=== PATIENT | female | born 1965 | race Two or more races ===

== ENCOUNTER 2016-06-14 14:17 | Emergency (ER) | payer MEDICAID ==
[~2016-06-14] VITALS: Ht 154.9 cm; Wt 77.1 kg
[~2016-06-14 14:17] MED LIST: GABA-494; GLIP-115 PO; IBUP800T24; METF-312 PO; SIMV-8
[2016-06-14 15:23] LABS: Basophils # (auto) 0 uL; Basophils % (auto) 0.4 % (0.0-2.0); Eosinophils # (auto) 0.1 uL; Eosinophils % (auto) 1.2 % (0.0-7.0); Hematocrit 39.7 % (36.0-46.0); Lymphocytes # (auto) 2.8 uL; Lymphocytes % (auto) 32.7 % (10.0-50.0); Mean Corpuscular Hemoglobin 28.7 pg (28.0-32.0); Mean Corpuscular Hgb Conc. 32.8 g/dL (32.0-36.0); Mean Corpuscular Volume 87.6 fL (80.0-100.0); Mean Platelet Volume 9.1 fL (7.4-10.4); Monocytes # (auto) 0.5 uL; Monocytes % (auto) 6.4 % (0.0-12.0); Neutrophils % (auto) 59.3 % (37.0-80.0); Platelet Count (auto) 259 10^3/uL (140-450); Red Cell Distribution Width 12.4 % (11.6-16.0); White Blood Cell 8.4 10^3/uL (4.4-10.8)
[2016-06-14 15:34] LABS: Albumin 3.1 g/dL (3.4-5.0); BUN/Creatinine Ratio 14.9; Calcium 8.6 mg/dL (8.5-10.1); Magnesium 1.3 mg/dL (1.6-2.6); Potassium 3.2 mmol/L (3.5-5.1)
[2016-06-14 15:36] LABS: Bilirubin, Total 0.4 mg/dL (0.2-1.0)
[2016-06-14 17:00] VITALS: BP 124/77
== END 2016-06-14 17:10 | disposition home or self-care (01) ==
LOC: EDUNIT# 14:17 → ER 14:21
DX: R07.89 Other chest pain (principal); E11.9 Type 2 diabetes mellitus without complications; E78.5 Hyperlipidemia, unspecified; I10 Essential (primary) hypertension; Z86.73 Personal history of transient ischemic attack (TIA), and cerebral infarction without residual deficits; Z87.442 Personal history of urinary calculi
CPT/HCPCS: 36415; 71010; 80053; 83735; 84443; 84484; 85025; 93005

== ENCOUNTER 2018-01-03 07:48 | Emergency (ER) | payer SELFPAY ==
[~2018-01-03] VITALS: Ht 154.9 cm; Wt 74.8 kg
[~2018-01-03 07:48] MED LIST changes: -GABA-494; +GABA100C9; -METF-312 PO; +METF-370 PO
[2018-01-03 07:58] VITALS: BP 148/85
== END 2018-01-03 08:57 | disposition home or self-care (01) ==
LOC: ER 07:48
DX: L03.211 Cellulitis of face (principal); E11.9 Type 2 diabetes mellitus without complications; E78.5 Hyperlipidemia, unspecified; I10 Essential (primary) hypertension; Z86.73 Personal history of transient ischemic attack (TIA), and cerebral infarction without residual deficits

== ENCOUNTER 2018-01-06 00:07 | Emergency (ER) | payer SELFPAY ==
[~2018-01-06] VITALS: Ht 152.4 cm; Wt 74.8 kg
[2018-01-06 01:13] LABS: Basophils # (auto) 0.1 uL; Basophils % (auto) 0.8 % (0.0-2.0); Eosinophils # (auto) 0.1 uL; Eosinophils % (auto) 0.8 % (0.0-7.0); Hematocrit 39.9 % (36.0-46.0); Hemoglobin 13.6 g/dL (12.2-16.2); Lymphocytes # (auto) 3.3 uL; Lymphocytes % (auto) 32.5 % (10.0-50.0); Mean Corpuscular Hemoglobin 30.5 pg (28.0-32.0); Mean Corpuscular Volume 89.7 fL (80.0-100.0); Monocytes # (auto) 0.7 uL; Monocytes % (auto) 7.2 % (0.0-12.0); Neutrophils # (auto) 5.9 uL; Neutrophils % (auto) 58.7 % (37.0-80.0); Platelet Count (auto) 299 10^3/uL (140-450); Red Blood Cells 4.44 10^6/uL (4.0-5.20); Red Cell Distribution Width 12.8 % (11.8-14.3); White Blood Cell 10.1 10^3/uL (4.4-10.8)
[2018-01-06 01:33] LABS: INR 0.93 (0.9-1.15); Partial Thromboplastin Time 28.9 sec (23.78-33.04)
[2018-01-06 01:37] LABS: Albumin 3.4 g/dL (3.4-5.0); Anion Gap 9 (5-15); BUN/Creatinine Ratio 15.4; Blood Urea Nitrogen 14 mg/dL (7-18); Calcium 8.6 mg/dL (8.5-10.1); Carbon Dioxide 25 mmol/L (21-32); Chloride 100 mmol/L (98-107); GFR African American 83 mL/min; GFR Non-African American 69 mL/min; Glucose 395 mg/dL (74-106); Magnesium 1.6 mg/dL (1.6-2.6); Potassium 3.7 mmol/L (3.5-5.1); Sodium 134 mmol/L (136-145)
[2018-01-06 01:49] LABS: Alanine Aminotransferase 22 U/L (13-56); Alkaline Phosphatase 74 U/L (45-117); Aspartate Aminotransferase 12 U/L (15-37); Bilirubin, Total 0.4 mg/dL (0.2-1.0); Total Protein 7.6 g/dL (6.4-8.2)
[2018-01-06 04:07] VITALS: BP 130/82
[2018-01-06] MEDS ORDERED: KETOROLAC TROMETH 60MG/2ML VIAL IM ONE (04:30)
[2018-01-06] MEDS ORDERED: CARISOPRODOL 350 MG TAB PO ONE (04:30)
[2018-01-06] MEDS ORDERED: INSULIN 70/30 1unit/0.01ml Susp (100units/ml) SC ONE (05:15)
== END 2018-01-06 05:32 | disposition home or self-care (01) ==
LOC: ER 00:09
DX: S16.1XXA Strain of muscle, fascia and tendon at neck level, initial encounter (principal); E11.9 Type 2 diabetes mellitus without complications; I10 Essential (primary) hypertension; E78.5 Hyperlipidemia, unspecified; Z86.73 Personal history of transient ischemic attack (TIA), and cerebral infarction without residual deficits; X58.XXXA Exposure to other specified factors, initial encounter; Y93.89 Activity, other specified; Y99.8 Other external cause status; Y92.89 Other specified places as the place of occurrence of the external cause
CPT/HCPCS: 36415; 71045; 72125; 80053; 83735; 84484; 85025; 85610; 85730; 93005; 96372; 99285; J1885

== ENCOUNTER 2018-06-07 08:28 | Emergency (ER) | payer SELFPAY ==
[~2018-06-07] VITALS: Ht 152.4 cm; Wt 74.8 kg
[2018-06-07 09:07] VITALS: BP 153/83
[2018-06-07] MEDS ORDERED: KETOROLAC TROMETH 60MG/2ML VIAL IM ONE (09:15)
== END 2018-06-07 09:39 | disposition home or self-care (01) ==
LOC: ER 08:32
DX: S39.012A Strain of muscle, fascia and tendon of lower back, initial encounter (principal); S76.012A Strain of muscle, fascia and tendon of left hip, initial encounter; R51 Headache; E11.9 Type 2 diabetes mellitus without complications; E78.5 Hyperlipidemia, unspecified; I10 Essential (primary) hypertension; Z86.73 Personal history of transient ischemic attack (TIA), and cerebral infarction without residual deficits; W01.0XXA Fall on same level from slipping, tripping and stumbling without subsequent striking against object, initial encounter; Y93.89 Activity, other specified; Y99.8 Other external cause status; Y92.89 Other specified places as the place of occurrence of the external cause
CPT/HCPCS: 70450; 72100; 73502; 96372; 99284; J1885

== ENCOUNTER 2018-07-17 20:04 | Emergency (ER) | payer SELFPAY ==
[~2018-07-17] VITALS: Ht 152.4 cm; Wt 74.8 kg
[2018-07-17 21:05] VITALS: BP 129/74
[2018-07-17 21:43] LABS: Urine Bacteria FEW /hpf (None Seen); Urine Blood Negative /uL (Negative); Urine Mucus FEW (None Seen); Urine Specific Gravity 1.025 (1.001-1.035); Urine WBC 2 /hpf (0 - 5)
[2018-07-17 21:54] LABS: Basophils # (auto) 0 uL; Basophils % (auto) 0.4 % (0.0-2.0); Eosinophils # (auto) 0.1 uL; Eosinophils % (auto) 0.9 % (0.0-7.0); Hematocrit 41.3 % (36.0-46.0); Hemoglobin 14.1 g/dL (12.2-16.2); Lymphocytes # (auto) 3.3 uL; Mean Corpuscular Hemoglobin 30.6 pg (28.0-32.0); Mean Corpuscular Hgb Conc. 34.2 g/dL (32.0-36.0); Mean Corpuscular Volume 89.6 fL (80.0-100.0); Monocytes # (auto) 0.7 uL; Monocytes % (auto) 7.4 % (0.0-12.0); Neutrophils % (auto) 59.3 % (37.0-80.0); Platelet Count (auto) 331 10^3/uL (140-450); Red Blood Cells 4.61 10^6/uL (4.0-5.20); Red Cell Distribution Width 12.8 % (11.8-14.3); White Blood Cell 10.2 10^3/uL (4.4-10.8)
[2018-07-17 22:00] LABS: INR 0.94 (0.9-1.15); Partial Thromboplastin Time 25.4 sec (23.78-33.04); Prothrombin Time 10.1 sec (9.27-12.13)
[2018-07-17 22:02] LABS: Alanine Aminotransferase 21 U/L (13-56); Albumin 3.4 g/dL (3.4-5.0); Amylase 41 U/L (25-115); Anion Gap 12 (5-15); Aspartate Aminotransferase 14 U/L (15-37); BUN/Creatinine Ratio 13.6; Blood Urea Nitrogen 9 mg/dL (7-18); Calcium 8.4 mg/dL (8.5-10.1); Carbon Dioxide 26 mmol/L (21-32); Chloride 102 mmol/L (98-107); GFR African American 120 mL/min; GFR Non-African American 100 mL/min; Glucose 255 mg/dL (74-106); Lipase 111 U/L (73-393); Magnesium 1.5 mg/dL (1.6-2.6); Potassium 3.6 mmol/L (3.5-5.1); Sodium 140 mmol/L (136-145)
[2018-07-17 22:08] LABS: Alkaline Phosphatase 70 U/L (45-117); Bilirubin, Total 0.5 mg/dL (0.2-1.0); Total Protein 7.7 g/dL (6.4-8.2)
== END 2018-07-17 23:50 | disposition home or self-care (01) ==
LOC: ER 20:06
DX: N20.0 Calculus of kidney (principal); K57.30 Diverticulosis of large intestine without perforation or abscess without bleeding; E11.9 Type 2 diabetes mellitus without complications; E78.5 Hyperlipidemia, unspecified; I10 Essential (primary) hypertension
CPT/HCPCS: 36415; 70450; 74176; 80053; 81001; 82150; 83690; 83735; 84484; 85025; 85610; 85730; 93005

== ENCOUNTER 2018-09-10 19:32 | Emergency (ER) | payer MEDICAID ==
[~2018-09-10] VITALS: Ht 152.4 cm; Wt 70.8 kg
[2018-09-10 20:50] LABS: Urine Bacteria NONE SEEN /hpf (None Seen); Urine Blood Negative /uL (Negative); Urine Mucus FEW (None Seen); Urine WBC 4 /hpf (0 - 5)
[2018-09-10 21:52] LABS: Basophils # (auto) 0 uL; Basophils % (auto) 0.5 % (0.0-2.0); Eosinophils # (auto) 0.1 uL; Eosinophils % (auto) 1.2 % (0.0-7.0); Hematocrit 43.8 % (36.0-46.0); Lymphocytes # (auto) 2.6 uL; Lymphocytes % (auto) 26.5 % (10.0-50.0); Mean Corpuscular Hemoglobin 30.4 pg (28.0-32.0); Mean Corpuscular Hgb Conc. 34.1 g/dL (32.0-36.0); Monocytes # (auto) 0.6 uL; Monocytes % (auto) 6.2 % (0.0-12.0); Neutrophils # (auto) 6.4 uL; Neutrophils % (auto) 65.6 % (37.0-80.0); Nucleated Red Blood Cells % 0.1 %; Platelet Count (auto) 361 10^3/uL (140-450); Red Blood Cells 4.92 10^6/uL (4.0-5.20); White Blood Cell 9.8 10^3/uL (4.4-10.8)
[2018-09-10 22:13] LABS: Albumin 3.8 g/dL (3.4-5.0); Calcium 9.5 mg/dL (8.5-10.1); Potassium 4.1 mmol/L (3.5-5.1)
[2018-09-10 22:19] LABS: BUN/Creatinine Ratio 18.5; Bilirubin, Total 0.5 mg/dL (0.2-1.0); Total Protein 8.3 g/dL (6.4-8.2)
[2018-09-11] MEDS ORDERED: ONDANSETRON HCL 4 MG/2 ML VIAL IV ONE (00:45)
[2018-09-11] MEDS ORDERED: HYDROmorphone HCL 2 MG/ML VL IV ONE (00:45)
[2018-09-11] MEDS ORDERED: SODIUM CHLORIDE 0.9% 1,000 ML IV ONE (03:15)
[2018-09-11] MEDS ORDERED: InsuLIN REG 1unit/0.01ml Soln (100units/ml) IV ONE ×2 (03:15→04:45)
[2018-09-11 04:35] VITALS: BP 120/79
== END 2018-09-11 06:00 | disposition home or self-care (01) ==
LOC: ER 19:36
DX: E11.65 Type 2 diabetes mellitus with hyperglycemia (principal); E78.5 Hyperlipidemia, unspecified; I10 Essential (primary) hypertension; Z87.442 Personal history of urinary calculi; Z86.73 Personal history of transient ischemic attack (TIA), and cerebral infarction without residual deficits; Z79.899 Other long term (current) drug therapy
CPT/HCPCS: 36415; 74176; 76705; 80053; 81001; 81025; 82150; 82962; 83690; 85025; 93005; 96361; 96374; 96375; 99284; J1170; J1815; J2405; J7030

== ENCOUNTER 2019-05-17 14:58 | Emergency (ER) | payer SELFPAY ==
[~2019-05-17] VITALS: Ht 152.4 cm; Wt 70.3 kg
[~2019-05-17 14:58] MED LIST changes: -GLIP-115 PO; +GLIP5TAB12 PO
[2019-05-17 15:20] VITALS: BP 125/92
[2019-05-17 16:05] LABS: Basophils # (auto) 0 uL; Basophils % (auto) 0.5 % (0.0-2.0); Eosinophils # (auto) 0.1 uL; Eosinophils % (auto) 0.9 % (0.0-7.0); Hematocrit 42.3 % (36.0-46.0); Hemoglobin 14.4 g/dL (12.2-16.2); Lymphocytes # (auto) 1.9 uL; Lymphocytes % (auto) 24.3 % (10.0-50.0); Mean Corpuscular Volume 88.3 fL (80.0-100.0); Monocytes # (auto) 0.6 uL; Monocytes % (auto) 7.4 % (0.0-12.0); Neutrophils # (auto) 5.2 uL; Neutrophils % (auto) 66.9 % (37.0-80.0); Nucleated Red Blood Cells % 0.2 %; Platelet Count (auto) 281 10^3/uL (140-450); Red Blood Cells 4.79 10^6/uL (4.0-5.20); Red Cell Distribution Width 12.8 % (11.8-14.3); White Blood Cell 7.7 10^3/uL (4.4-10.8)
[2019-05-17 16:17] LABS: Alanine Aminotransferase 19 U/L (13-56); Albumin 3.7 g/dL (3.4-5.0); Anion Gap 11 (5-15); Aspartate Aminotransferase 11 U/L (15-37); BUN/Creatinine Ratio 16.4; Blood Urea Nitrogen 10 mg/dL (7-18); Calcium 9.5 mg/dL (8.5-10.1); Carbon Dioxide 24 mmol/L (21-32); Chloride 104 mmol/L (98-107); GFR African American 132 mL/min; GFR Non-African American 109 mL/min; Glucose 215 mg/dL (74-106); Potassium 3.3 mmol/L (3.5-5.1); Sodium 139 mmol/L (136-145)
[2019-05-17 16:22] LABS: Alkaline Phosphatase 70 U/L (45-117); Bilirubin, Total 0.8 mg/dL (0.2-1.0); Total Protein 7.5 g/dL (6.4-8.2)
[2019-05-17] MEDS ORDERED: cefTRIAXone W LIDOCAINE 1 GM IM IM ONE (17:00)
== END 2019-05-17 18:43 | disposition left against medical advice (07) ==
LOC: ER 15:08
DX: J40 Bronchitis, not specified as acute or chronic (principal); E11.65 Type 2 diabetes mellitus with hyperglycemia; I10 Essential (primary) hypertension; F41.9 Anxiety disorder, unspecified; E78.5 Hyperlipidemia, unspecified; Z86.73 Personal history of transient ischemic attack (TIA), and cerebral infarction without residual deficits
CPT/HCPCS: 36415; 71046; 80053; 82962; 84484; 85025; 99284; J0696; 93005

== ENCOUNTER 2019-05-22 21:32 | Inpatient (IN) | payer SELFPAY ==
[~2019-05-22] VITALS: Ht 152.4 cm; Wt 69.9 kg
[2019-05-22 22:40] LABS: Basophils # (auto) 0 uL; Basophils % (auto) 0.3 % (0.0-2.0); Eosinophils # (auto) 0.1 uL; Eosinophils % (auto) 2.2 % (0.0-7.0); Hematocrit 41.1 % (36.0-46.0); Hemoglobin 13.8 g/dL (12.2-16.2); Lymphocytes # (auto) 2.8 uL; Lymphocytes % (auto) 45.2 % (10.0-50.0); Mean Corpuscular Hemoglobin 30.1 pg (28.0-32.0); Mean Corpuscular Hgb Conc. 33.7 g/dL (32.0-36.0); Mean Corpuscular Volume 89.3 fL (80.0-100.0); Monocytes # (auto) 0.5 uL; Monocytes % (auto) 8.9 % (0.0-12.0); Neutrophils # (auto) 2.7 uL; Neutrophils % (auto) 43.4 % (37.0-80.0); Nucleated Red Blood Cells % 0.1 %; Platelet Count (auto) 242 10^3/uL (140-450); White Blood Cell 6.2 10^3/uL (4.4-10.8)
[2019-05-22 22:53] LABS: INR 0.93 (0.9-1.15); Partial Thromboplastin Time 27.3 sec (23.64-32.05)
[2019-05-22 22:57] LABS: Alanine Aminotransferase 19 U/L (13-56); Albumin 3.3 g/dL (3.4-5.0); Anion Gap 9 (5-15); Aspartate Aminotransferase 15 U/L (15-37); BUN/Creatinine Ratio 13.4; Blood Urea Nitrogen 9 mg/dL (7-18); Calcium 8.1 mg/dL (8.5-10.1); Carbon Dioxide 25 mmol/L (21-32); Chloride 105 mmol/L (98-107); GFR African American 118 mL/min; GFR Non-African American 98 mL/min; Glucose 368 mg/dL (74-106); Potassium 3.7 mmol/L (3.5-5.1); Sodium 139 mmol/L (136-145)
[2019-05-22 23:02] LABS: Alkaline Phosphatase 73 U/L (45-117); Bilirubin, Total 0.3 mg/dL (0.2-1.0); Total Protein 7.4 g/dL (6.4-8.2)
[2019-05-23 00:48] LABS: Urine Amorphous Crystal FEW /hpf (None Seen); Urine Bacteria MOD /hpf (None Seen); Urine Blood Negative /uL (Negative); Urine Mucus FEW (None Seen); Urine Specific Gravity 1.027 (1.001-1.035); Urine WBC 4 /hpf (0 - 5)
[2019-05-23] MEDS ORDERED: ASPirin 81 mg TAB PO ONE (02:00)
[2019-05-23] MEDS ORDERED: ATORVASTATIN 20 MG TAB PO ONE (02:00)
[2019-05-23] MEDS ORDERED: ONDANSETRON HCL 4 MG/2 ML VIAL IV PRN (03:15)
[2019-05-23] MEDS ORDERED: DEXTROSE (50%) 50ML SYRG IV PRN (03:15)
[2019-05-23] MEDS ORDERED: ACETAMINOPHEN 325 MG TAB PO PRN (03:15)
[2019-05-23] MEDS ORDERED: TEMAZEPAM 15 MG CAP PO PRN (03:15)
[2019-05-23 04:55] VITALS: BP 97/57
--- NOTE | 2019-05-23 04:55 | NUR ---
MS admit from ER RICH PEREZ admitted to tele/MS after SBAR received. Patient oriented to Mel Newsome RN primary RN, unit, room, bed, and unit policies regarding patient care and visiting hours. Patient weighed by bedscale and encouraged to call if they need something. All questions and concerns addressed, patient verbalized understanding. Bed is in lowest locked position with bed rails up x2 and call light is within reach of the patient.
[2019-05-23] MEDS ORDERED: cefTRIAXone 1GM/50ML D5W 50 ML IV SCH (05:00)
[2019-05-23] MEDS: GABAPENTIN 100 MG CAP PO SCH ×2 (05:27→13:17)
[2019-05-23] MEDS: ACCU-CHEK COMFORT CURVE STRIP VI SCH ×2 (05:28→11:51)
[2019-05-23] MEDS: InsuLIN REG 1unit/0.01ml Soln (100units/ml) SC SCH ×2 (05:41→11:51)
[2019-05-23] MEDS ORDERED: SIMV-8 PO (05:58)
[2019-05-23] MEDS ORDERED: METF-370 PO (05:58)
[2019-05-23] MEDS ORDERED: GLIP5TAB12 PO (06:00)
[2019-05-23] MEDS ORDERED: INFLUENZA QUAD 2019-2020 0.5ml SYRG IM ONE (06:15)
--- NOTE | 2019-05-23 07:20 | NUR ---
OPENING NOTE ASSUMED CARE OF PT. ALERT AND ORIENTED. NO S/S OF SOB/DISTRESS NOTED. DENIES ANY PAIN. SAFETY PRECAUTIONS IN PLACE. BED SET TO LOWEST POSITION/LOCKED, BEDSIDE RAILS UP X2, CALL LIGHT WITHIN REACH. INSTRUCTED PT TO CALL FOR ASSISTANCE. UPDATED PT ON POC. WILL CONTINUE TO MONITOR Q1HR AND PRN.
[2019-05-23 09:00] VITALS: BP 104/68
[2019-05-23] MEDS ORDERED: ASPirin 325 MG TAB PO SCH (10:00)
[2019-05-23] MEDS ORDERED: ENOXAPARIN SOD 40 MG/0.4 ML SYRINGE SC SCH (10:00)
[2019-05-23] MEDS ORDERED: FAMOTIDINE 20 MG TAB PO SCH (10:00)
[2019-05-23 13:00] VITALS: BP 102/57
--- NOTE | 2019-05-23 15:12 | NUR ---
Nutrition Assessment Notes Est energy needs: [id number] kcals (23-23 kcals/kgBW) Est protein needs: 56-70 gms/day (0.8-1.0 gm/kg BW) Will continue to monitor and reassess prn Addendum: 05/23/19 at [address] Amended: Links added.
[2019-05-23 15:52] VITALS: BP 102/57
--- NOTE | 2019-05-23 16:57 | NUR ---
Discharge Discharge instructions given as ordered. Encourage to follow up with PMD as instructed. Patient provide with Nancy López information. All questions and concerns addressed. Patient verbalized understanding. IV removed with catheter intact, pressure dressing applied. Telemetry unit returned to ICU.
[2019-05-23 17:00] VITALS: BP 115/76
--- NOTE | 2019-05-23 17:18 | NUR ---
Discharge Patient taken to vehicle via wheelchair with all personal belongings, accompanied by staff and family member. No distress noted at time of departure.
[2019-05-23] MEDS ORDERED: ATORVASTATIN 20 MG TAB PO SCH (22:00)
== END 2019-05-23 17:15 | disposition home or self-care (01) | DRG 69 ==
LOC: ER 21:32 → OVERFLOW 21:33 → CENTRAL 05-23 05:12
PROVIDERS: ADMIT Nurse Practitioner; ATTEND Internal Medicine
DX: G45.9 Transient cerebral ischemic attack, unspecified (principal); N39.0 Urinary tract infection, site not specified; E11.9 Type 2 diabetes mellitus without complications; E78.5 Hyperlipidemia, unspecified; F41.9 Anxiety disorder, unspecified; E66.9 Obesity, unspecified; I10 Essential (primary) hypertension; Z68.30 Body mass index [BMI] 30.0-30.9, adult; Z79.82 Long term (current) use of aspirin; Z82.49 Family history of ischemic heart disease and other diseases of the circulatory system; Z86.73 Personal history of transient ischemic attack (TIA), and cerebral infarction without residual deficits; Z83.3 Family history of diabetes mellitus
CPT/HCPCS: 36415; 70450; 71045; 80053; 80320; 81001; 82962; 83036; 84484; 85025; 85610; 85730; 93005; G0378; J0696; J1815

== ENCOUNTER 2019-06-23 18:30 | Emergency (ER) | payer SELFPAY ==
[~2019-06-23] VITALS: Ht 152.4 cm; Wt 70.3 kg
[~2019-06-23 18:30] MED LIST changes: -GABA100C9; -IBUP800T24; -SIMV-8; +SIMV-8 PO
[2019-06-23 21:28] VITALS: BP 142/88
[2019-06-23] MEDS ORDERED: HYDROcodone-ACET 10/325MG TAB PO ONE (21:45)
[2019-06-23] MEDS ORDERED: BACLOFEN 10 MG TAB PO ONE (21:45)
[2019-06-23] MEDS ORDERED: KETOROLAC TROMETH 60MG/2ML VIAL IM ONE (21:45)
== END 2019-06-23 22:09 | disposition home or self-care (01) ==
LOC: ER 18:33
DX: M43.6 Torticollis (principal); E11.9 Type 2 diabetes mellitus without complications; E78.5 Hyperlipidemia, unspecified; Z86.73 Personal history of transient ischemic attack (TIA), and cerebral infarction without residual deficits
CPT/HCPCS: 72040; 96372; 99283; J1885

== ENCOUNTER 2023-05-23 13:29 | Emergency (ER) | payer MEDICAID ==
[~2023-05-23] VITALS: Ht 152.4 cm; Wt 65.0 kg
[~2023-05-23 13:29] MED LIST changes: -SIMV-8 PO; +SIMV20TA20 PO
[2023-05-23 13:33] VITALS: BP 159/90; RESP 20; O2SAT 100
[2023-05-23 13:40] VITALS: PULSE 106
[2023-05-23] MEDS ORDERED: LORazepam 2MG/ML-1ML VIAL IV ONE (13:45)
[2023-05-23 13:51] LABS: Basophils # (auto) 0.1 10 ^3/uL (0-0.2); Basophils % (auto) 0.5 % (0.0-2.0); Eosinophils # (auto) 0.1 10 ^3/uL (0-0.8); Eosinophils % (auto) 0.9 % (0.0-7.0); Hematocrit 42.5 % (36.0-46.0); Lymphocytes # (auto) 3.5 10 ^3/uL (0.4-5.4); Lymphocytes % (auto) 34.2 % (10.0-50.0); Mean Corpuscular Hemoglobin 28.8 pg (28.0-32.0); Mean Corpuscular Volume 87.2 fL (80.0-100.0); Monocytes # (auto) 0.7 10 ^3/uL (0-1.3); Monocytes % (auto) 6.4 % (0.0-12.0); Neutrophils # (auto) 5.9 10 ^3/uL (1.6-8.6); Red Blood Cells 4.87 10^6/uL (4.0-5.20); Red Cell Distribution Width 13.6 % (11.8-14.3); White Blood Cell 10.2 10^3/uL (4.4-10.8)
[2023-05-23 14:06] LABS: INR 1.01 (0.9-1.15); Prothrombin Time 10.6 sec (9.3-11.8)
[2023-05-23 14:07] LABS: Alanine Aminotransferase 15 U/L (7-40); Albumin 4.4 g/dL (3.2-4.8); Alkaline Phosphatase 66 U/L (46-116); Anion Gap 10 (5-15); Aspartate Aminotransferase 15 U/L (13-40); BUN/Creatinine Ratio 14.8 (10.0-20.0); Blood Urea Nitrogen 12 mg/dL (9-23); Calcium 9.9 mg/dL (8.5-10.1); Carbon Dioxide 23 mmol/L (20-30); Chloride 109 mmol/L (98-107); Glucose 227 mg/dL (74-106); Potassium 3.7 mmol/L (3.5-5.1); Sodium 142 mmol/L (136-145)
[2023-05-23 14:08] LABS: Bilirubin, Total 0.5 mg/dL (0.2-1.0)
[2023-05-24] MEDS ORDERED: EMPA1TAB3 PO (18:42)
[2023-05-24] MEDS ORDERED: DULA1INJ SC (18:42)
[2023-05-24] MEDS ORDERED: PANT40T PO (18:42)
[2023-05-24] MEDS ORDERED: BACL5TAB2 PO (18:42)
[2023-05-24] MEDS ORDERED: GAB100C PO (18:42)
[2023-05-24] MEDS ORDERED: ROSU1TAB15 PO (18:42)
[2023-05-24] MEDS ORDERED: METF-372 PO (18:42)
[2023-05-24] MEDS ORDERED: ALBU108A5 INH (18:42)
[2023-05-24] MEDS ORDERED: GLIM4TAB42 PO (18:42)
== END 2023-05-23 15:10 | disposition left against medical advice (07) ==
LOC: ER 13:29
DX: R07.89 Other chest pain (principal); F41.9 Anxiety disorder, unspecified; E11.9 Type 2 diabetes mellitus without complications; E78.5 Hyperlipidemia, unspecified; Z86.73 Personal history of transient ischemic attack (TIA), and cerebral infarction without residual deficits
CPT/HCPCS: 36415; 80053; 83880; 84484; 85025; 85610; 85730; 93005

== ENCOUNTER 2023-05-24 14:36 | Inpatient (IN) | payer MEDICAID ==
[~2023-05-24] VITALS: Ht 152.4 cm; Wt 67.2 kg
[2023-05-24] MEDS ORDERED: NITROGLYCERIN 0.4 MG SL TAB SL ONE (15:00)
[2023-05-24 15:15] LABS: Basophils # (auto) 0.1 10 ^3/uL (0-0.2); Basophils % (auto) 0.5 % (0.0-2.0); Eosinophils # (auto) 0.1 10 ^3/uL (0-0.8); Eosinophils % (auto) 0.8 % (0.0-7.0); Hematocrit 41.7 % (36.0-46.0); Hemoglobin 13.8 g/dL (12.2-16.2); Lymphocytes # (auto) 4.3 10 ^3/uL (0.4-5.4); Lymphocytes % (auto) 33.1 % (10.0-50.0); Mean Corpuscular Hemoglobin 28.9 pg (28.0-32.0); Mean Corpuscular Volume 87.6 fL (80.0-100.0); Monocytes # (auto) 0.6 10 ^3/uL (0-1.3); Monocytes % (auto) 4.8 % (0.0-12.0); Neutrophils # (auto) 7.9 10 ^3/uL (1.6-8.6); Neutrophils % (auto) 60.8 % (37.0-80.0); Red Blood Cells 4.76 10^6/uL (4.0-5.20); Red Cell Distribution Width 13.5 % (11.8-14.3)
[2023-05-24 15:29] LABS: INR 1.04 (0.9-1.15); Partial Thromboplastin Time 27.3 SEC (24.5-34.5); Prothrombin Time 10.9 sec (9.3-11.8)
[2023-05-24 15:30] LABS: Alanine Aminotransferase 16 U/L (7-40); Alkaline Phosphatase 60 U/L (46-116); Calcium 9.5 mg/dL (8.7-10.4); Carbon Dioxide 20 mmol/L (20-30); Chloride 109 mmol/L (98-107); Glucose 113 mg/dL (74-106); Magnesium 1.4 mg/dL (1.6-2.6); Potassium 3.4 mmol/L (3.5-5.1); Sodium 140 mmol/L (136-145)
[2023-05-24 15:31] LABS: Albumin 4.2 g/dL (3.2-4.8); Anion Gap 11 (5-15); Aspartate Aminotransferase 14 U/L (13-40); BUN/Creatinine Ratio 18.9 (10.0-20.0); Bilirubin, Total 0.7 mg/dL (0.2-1.0); Blood Urea Nitrogen 10 mg/dL (9-23); Total Protein 6.9 g/dL (5.7-8.2)
[2023-05-24] MEDS ORDERED: ROSU1TAB15 PO (18:42)
[2023-05-24] MEDS ORDERED: METF-372 PO (18:42)
[2023-05-24] MEDS ORDERED: GLIM4TAB42 PO (18:42)
[2023-05-24] MEDS ORDERED: BACL5TAB2 PO (18:42)
[2023-05-24] MEDS ORDERED: ALBU108A5 INH (18:42)
[2023-05-24] MEDS ORDERED: GAB100C PO (18:42)
[2023-05-24] MEDS ORDERED: PANT40T PO (18:42)
[2023-05-24] MEDS ORDERED: EMPA1TAB3 PO (18:42)
[2023-05-24] MEDS ORDERED: DULA1INJ SC (18:42)
[2023-05-24] MEDS ORDERED: ONDANSETRON HCL 4 MG/2 ML VIAL IV PRN (18:45)
[2023-05-24] MEDS ORDERED: MORPHINE SULFATE INJ 2 MG/ml SYRG IV PRN (18:45)
[2023-05-24] MEDS ORDERED: PANTOPRAZOLE 40 MG TAB PO ONE (18:45)
[2023-05-24] MEDS ORDERED: ASPirin-EC 325mg tab PO ONE (18:45)
[2023-05-24] MEDS ORDERED: DEXTROSE (50%) 50ML SYRG IV PRN (18:45)
[2023-05-24] MEDS ORDERED: HYDROcodone-ACET 5/325MG TAB PO PRN (18:45)
[2023-05-24] MEDS ORDERED: DOCUSATE SOD 100 MG CAP PO PRN (18:45)
[2023-05-24] MEDS ORDERED: POTASSIUM CHL 20 Meq TABLET PO ONE (18:45)
[2023-05-24] MEDS ORDERED: NITROGLYCERIN 0.4 MG SL TAB SL PRN (18:45)
[2023-05-24] MEDS ORDERED: IPRATROPIUM BROM 0.5 MG/2.5ML INH SOL NEB PRN (19:00)
[2023-05-24] MEDS ORDERED: ALBUTEROL SULF 2.5 MG/0.5ML(0.5%) NEB SOLN NEB PRN (19:00)
[2023-05-24] MEDS: InsuLIN REG 1unit/0.01ml Soln (100units/ml) SC SCH (22:00)
[2023-05-24 22:56] VITALS: PULSE 77; RESP 16; O2SAT 97
[2023-05-24] MEDS: GABAPENTIN 100 MG CAP PO SCH (23:10)
[2023-05-24] MEDS: ATORVASTATIN 20 MG TAB PO SCH (23:10)
[2023-05-24] MEDS: BACLOFEN 10 MG TAB PO SCH (23:11)
[2023-05-24] MEDS: ACCU-CHEK COMFORT CURVE STRIP VI SCH (23:11)
[2023-05-24 23:34] VITALS: BP 106/63; PULSE 77; RESP 16; TEMP 97.5; O2SAT 97
[2023-05-25] VITALS (10 sets, daily range): BP systolic 93–124; BP diastolic 60–72; PULSE 72–91; RESP 12–20; TEMP 97–98.1; O2SAT 95–97
[2023-05-25 03:39] LABS: COVID19 ANTIGEN SOFIA FIA NEGATIVE (NEGATIVE); Rapid Influenza A Negative (Negative); Rapid Influenza B Negative (Negative)
[2023-05-25 06:02] LABS: Basophils # (auto) 0 10 ^3/uL (0-0.2); Basophils % (auto) 0.4 % (0.0-2.0); Eosinophils # (auto) 0.1 10 ^3/uL (0-0.8); Eosinophils % (auto) 1.8 % (0.0-7.0); Hematocrit 39.7 % (36.0-46.0); Hemoglobin 13.1 g/dL (12.2-16.2); Lymphocytes # (auto) 3.2 10 ^3/uL (0.4-5.4); Lymphocytes % (auto) 41.1 % (10.0-50.0); Mean Corpuscular Hemoglobin 29.1 pg (28.0-32.0); Mean Corpuscular Volume 88.2 fL (80.0-100.0); Monocytes # (auto) 0.6 10 ^3/uL (0-1.3); Monocytes % (auto) 7.5 % (0.0-12.0); Neutrophils # (auto) 3.8 10 ^3/uL (1.6-8.6); Neutrophils % (auto) 49.2 % (37.0-80.0); Nucleated Red Blood Cells % 0.1 %; Red Blood Cells 4.49 10^6/uL (4.0-5.20); Red Cell Distribution Width 13.7 % (11.8-14.3); White Blood Cell 7.7 10^3/uL (4.4-10.8)
[2023-05-25 06:20] LABS: Alanine Aminotransferase 10 U/L (7-40); Albumin 3.8 g/dL (3.2-4.8); Alkaline Phosphatase 50 U/L (46-116); Anion Gap 6 (5-15); Aspartate Aminotransferase 14 U/L (13-40); BUN/Creatinine Ratio 13.7 (10.0-20.0); Blood Urea Nitrogen 7 mg/dL (9-23); Carbon Dioxide 25 mmol/L (20-30); Chloride 109 mmol/L (98-107); Glucose 110 mg/dL (74-106); Potassium 3.6 mmol/L (3.5-5.1); Sodium 140 mmol/L (136-145)
[2023-05-25 06:21] LABS: Total Protein 6.3 g/dL (5.7-8.2)
[2023-05-25] MEDS: InsuLIN REG 1unit/0.01ml Soln (100units/ml) SC SCH ×4 (06:51→21:28)
[2023-05-25] MEDS: BACLOFEN 10 MG TAB PO SCH ×3 (06:51→21:22)
[2023-05-25] MEDS: ACCU-CHEK COMFORT CURVE STRIP VI SCH ×4 (06:51→21:22)
[2023-05-25] MEDS: ACETAMINOPHEN 325 MG TAB PO PRN ×2 (06:55→15:52)
[2023-05-25] MEDS: ENOXAPARIN SOD 40 MG/0.4 ML SYRINGE SC SCH (10:00)
[2023-05-25] MEDS: ASPirin-EC 81 mg tab PO SCH (10:00)
[2023-05-25] MEDS: GABAPENTIN 100 MG CAP PO SCH ×2 (11:26→21:22)
[2023-05-25] MEDS: PANTOPRAZOLE 40 MG TAB PO SCH (11:26)
[2023-05-25] MEDS: EMPAGLIFLOZIN 10 MG TAB PO SCH (11:27)
[2023-05-25] MEDS ORDERED: LIDOCAINE 2%HCL (LOCAL ANESTH.) INJ 20ML MDV ONE (12:57)
[2023-05-25] MEDS ORDERED: IODIXANOL 320MG/ML 100ML BTL IV ONE (12:57)
[2023-05-25] MEDS ORDERED: ANGIOMAX 250 MG VIAL IV ONE (13:14)
[2023-05-25] MEDS ORDERED: fentaNYL CITRATE 100 MCG/2 ML VL ONE (13:15)
[2023-05-25] MEDS ORDERED: VERAPAMIL 2.5MG/ML INJ 2ML VIAL IV ONE (13:15)
[2023-05-25] MEDS ORDERED: SODIUM CHL 0.9% 0 ML ONE (13:15)
[2023-05-25] MEDS ORDERED: MIDAZOLAM HCL 2MG/2ML 2ml VIAL (1mg/ml) ONE (13:15)
[2023-05-25] MEDS ORDERED: HEPARIN SODIUM (PORCINE) 5000 UNITS/ML 1ML VIAL ONE (13:15)
[2023-05-25] MEDS: ATORVASTATIN 20 MG TAB PO SCH (21:22)
[2023-05-26 02:24] VITALS: O2SAT 96
[2023-05-26 05:00] VITALS: BP 100/53; PULSE 78; RESP 16; TEMP 97.3; O2SAT 95
[2023-05-26] MEDS: BACLOFEN 10 MG TAB PO SCH ×2 (05:22→14:45)
[2023-05-26 05:48] LABS: Basophils # (auto) 0 10 ^3/uL (0-0.2); Basophils % (auto) 0.5 % (0.0-2.0); Eosinophils # (auto) 0.2 10 ^3/uL (0-0.8); Eosinophils % (auto) 1.8 % (0.0-7.0); Hematocrit 40.2 % (36.0-46.0); Hemoglobin 13.3 g/dL (12.2-16.2); Lymphocytes # (auto) 3.3 10 ^3/uL (0.4-5.4); Lymphocytes % (auto) 33.7 % (10.0-50.0); Mean Corpuscular Hemoglobin 29.3 pg (28.0-32.0); Mean Corpuscular Hgb Conc. 33.2 g/dL (32.0-36.0); Mean Corpuscular Volume 88.3 fL (80.0-100.0); Monocytes # (auto) 0.6 10 ^3/uL (0-1.3); Monocytes % (auto) 6.3 % (0.0-12.0); Neutrophils # (auto) 5.6 10 ^3/uL (1.6-8.6); Neutrophils % (auto) 57.7 % (37.0-80.0); Nucleated Red Blood Cells % 0.1 %; Red Blood Cells 4.55 10^6/uL (4.0-5.20); Red Cell Distribution Width 13.7 % (11.8-14.3); White Blood Cell 9.7 10^3/uL (4.4-10.8)
[2023-05-26 06:02] LABS: Alanine Aminotransferase 14 U/L (7-40); Alkaline Phosphatase 55 U/L (46-116); Anion Gap 8 (5-15); Aspartate Aminotransferase 15 U/L (13-40); BUN/Creatinine Ratio 17.5 (10.0-20.0); Blood Urea Nitrogen 11 mg/dL (9-23); Calcium 9.4 mg/dL (8.5-10.1); Carbon Dioxide 26 mmol/L (20-30); Chloride 106 mmol/L (98-107); Glucose 166 mg/dL (74-106); LDL Cholesterol 68 mg/dL (< 100); Potassium 3.4 mmol/L (3.5-5.1); Sodium 140 mmol/L (136-145); Triglycerides 93 mg/dL (< 150)
[2023-05-26 06:03] LABS: Albumin 3.9 g/dL (3.2-4.8); Bilirubin, Total 0.6 mg/dL (0.2-1.0); Cholesterol 112 mg/dL (< 200); HDL Cholesterol 33 mg/dL (40-59); Total Protein 6.5 g/dL (5.7-8.2)
[2023-05-26] MEDS: InsuLIN REG 1unit/0.01ml Soln (100units/ml) SC SCH ×2 (06:14→11:30)
[2023-05-26] MEDS: ACCU-CHEK COMFORT CURVE STRIP VI SCH ×2 (07:00→11:49)
[2023-05-26] MEDS ORDERED: POTASSIUM CHL 20 Meq TABLET PO ONE (07:30)
[2023-05-26 08:00] VITALS: PULSE 75; PULSE 83; RESP 16
[2023-05-26 09:00] VITALS: BP 125/85; PULSE 83; RESP 16; TEMP 98.2; O2SAT 95
[2023-05-26 09:37] VITALS: O2SAT 97
[2023-05-26] MEDS: EMPAGLIFLOZIN 10 MG TAB PO SCH (10:10)
[2023-05-26] MEDS: ASPirin-EC 81 mg tab PO SCH (10:12)
[2023-05-26] MEDS: GABAPENTIN 100 MG CAP PO SCH (10:12)
[2023-05-26] MEDS: PANTOPRAZOLE 40 MG TAB PO SCH (10:13)
[2023-05-26] MEDS: ENOXAPARIN SOD 40 MG/0.4 ML SYRINGE SC SCH (10:14)
[2023-05-26] MEDS ORDERED: ASPI-543 PO (11:17)
[2023-05-26 14:00] VITALS: BP 105/59; PULSE 77; RESP 16; TEMP 36.8; O2SAT 95
== END 2023-05-26 15:00 | disposition home or self-care (01) | DRG 191 ==
LOC: EDBD 14:36 → ER 14:36 → TELE 18:47 → TELE-EAST 22:48
PROVIDERS: ADMIT Internal Medicine; ATTEND Internal Medicine
PROC: 4A023N7 Measurement of Cardiac Sampling and Pressure, Left Heart, Percutaneous Approach (ICD-10-PCS; principal; 2023-05-25)
PROC: B211YZZ Fluoroscopy of Multiple Coronary Arteries using Other Contrast (ICD-10-PCS; 2023-05-25)
PROC: B215YZZ Fluoroscopy of Left Heart using Other Contrast (ICD-10-PCS; 2023-05-25)
DX: I25.110 Atherosclerotic heart disease of native coronary artery with unstable angina pectoris (principal); I24.9 Acute ischemic heart disease, unspecified; K21.9 Gastro-esophageal reflux disease without esophagitis; E11.9 Type 2 diabetes mellitus without complications; E78.5 Hyperlipidemia, unspecified; I10 Essential (primary) hypertension; F41.9 Anxiety disorder, unspecified; R19.7 Diarrhea, unspecified; Z20.822 Contact with and (suspected) exposure to COVID-19; J45.909 Unspecified asthma, uncomplicated; Z86.73 Personal history of transient ischemic attack (TIA), and cerebral infarction without residual deficits; Z82.49 Family history of ischemic heart disease and other diseases of the circulatory system; Z83.3 Family history of diabetes mellitus
CPT/HCPCS: 36415; 71045; 80053; 80061; 82962; 83735; 83880; 84443; 84484; 85025; 85379; 85610; 85730; 87426; 87804; 93005; 93306; 99152; G0378; J1815; J2250; Q9967

== ENCOUNTER 2023-07-13 22:05 | Emergency (ER) | payer MEDICAID ==
[~2023-07-13] VITALS: Ht 152.4 cm; Wt 132.0 kg
[2023-07-13 22:05] VITALS: TEMP 98.1; O2SAT 98
[~2023-07-13 22:05] MED LIST changes: +ALBU108A5 INH; +ASPI-543 PO; +BACL5TAB2 PO; +DULA1INJ SC; +EMPA1TAB3 PO; +GAB100C PO; +GLIM4TAB42 PO; -GLIP5TAB12 PO; -METF-370 PO; +METF-372 PO; +PANT40T PO; +ROSU1TAB15 PO; -SIMV20TA20 PO
[2023-07-13] MEDS ORDERED: KETOROLAC TROMETH 30 MG/ML 1ML VIAL IM ONE (22:30)
[2023-07-13 22:54] LABS: Urine Bacteria NONE SEEN /hpf (None Seen); Urine Blood Negative /uL (Negative); Urine Clarity Clear (Clear); Urine Color Colorless (Yellow); Urine Protein, UAD Negative (Negative); Urine Specific Gravity 1.026 (1.001-1.035); Urine Urobilinogen Normal (Negative); Urine WBC 7 /hpf (0 - 5); Urine pH 5.5 (5.0-8.0)
[2023-07-13] MEDS: KETOROLAC TROMETH 60MG/2ML VIAL IM ONE (23:07)
[2023-07-13] MEDS: MORPHINE SULFATE 4 MG/ML SYR/VIAL IM ONE (23:08)
[2023-07-13] MEDS ORDERED: HYDR-4902 PO (23:40)
[2023-07-14 00:20] VITALS: BP 150/101; PULSE 89; RESP 16
== END 2023-07-14 00:24 | disposition home or self-care (01) ==
LOC: ER 22:05
DX: M54.50 Low back pain, unspecified (principal); E11.9 Type 2 diabetes mellitus without complications; E78.5 Hyperlipidemia, unspecified; Z86.73 Personal history of transient ischemic attack (TIA), and cerebral infarction without residual deficits; Z86.2 Personal history of diseases of the blood and blood-forming organs and certain disorders involving the immune mechanism; Z79.82 Long term (current) use of aspirin; Z79.899 Other long term (current) drug therapy
CPT/HCPCS: 81001; 96372; 99284; J1885; J2270

== ENCOUNTER 2023-11-01 19:55 | Emergency (ER) | payer MEDICAID ==
[~2023-11-01 19:55] MED LIST changes: +HYDR-4902 PO; -ROSU1TAB15 PO; +ROSU40TA47 PO
== END 2023-11-01 20:50 | disposition left against medical advice (07) ==
LOC: ER 19:55
DX: M54.2 Cervicalgia (principal); Z53.21 Procedure and treatment not carried out due to patient leaving prior to being seen by health care provider

== ENCOUNTER 2024-04-28 20:03 | Emergency (ER) | payer MEDICAID ==
[~2024-04-28] VITALS: Ht 152.4 cm; Wt 68.0 kg
--- NOTE | 2024-04-28 20:45 | ED.PDOC ---
History of Present Illness HPI Comments 58-year-old female who came to ER for back pains. Patient does have history of hypertension, diabetes, and dyslipidemia. Past 4 days she has been experiencing lower back pains, constant, nonradiating, associated with nausea. Denies any recent trauma. denies any urinary symptoms. Denies any unilateral weakness or numbness of the lower extremities. Chief Complaint: Back Pain Time Seen by MD: 20:45 Primary Care Provider: SONYA Reviewed Notes: Nurses Notes Allergies: Coded Allergies: NO KNOWN ALLERGIES (Unverified , 04/22/11) Home Meds Active Scripts Cyclobenzaprine Hcl (CYCLOBENZAPRINE HCL) 7.5 Mg Tab, 7.5 MG PO BID PRN for 10 Days, #20 TAB Prov:LUCY FRAZIER MD 04/28/24 Gabapentin (Gabapentin) 300 Mg Cap, 1 CAP PO TID PRN for 10 Days, #90 CAP 5 Refills Prov:LUCY FRAZIER MD 04/28/24 Hydrocodone-Acetaminophen (Hydrocodone Bitartrate/AC 5-325 mg) 1 Tab Tab, 1 TAB PO Q4HP PRN, #20 TAB Prov:BERNABE KATZ DO 07/13/23 Aspirin (Aspir-Low) 81 Mg Tab, 81 MG PO DAILY, #30 TAB 5 Refills Prov:EDGAR MIMS MD 05/26/23 Reported Medications Rosuvastatin Calcium (Rosuvastatin Calcium) 40 Mg Tab, 1 TAB PO DAILY 05/24/23 Gabapentin (Gabapentin) 100 Mg Cap, PO 05/24/23 Glimepiride (Glimepiride) 4 Mg Tab, 1 TAB PO BID 05/24/23 Baclofen (Baclofen) 5 Mg Tab, 1 TAB PO TID 05/24/23 Albuterol Sulfate (Albuterol Sulfate Hfa) 108 Mcg/Act Aer, INH 05/24/23 Empagliflozin (Jardiance) 25 Mg Tab, 1 TAB PO DAILY 05/24/23 Dulaglutide (Trulicity) 0.75 Mg/0.5 Ml Inj, SC 05/24/23 Metformin Hydrochloride (Metformin Hcl) 1,000 Mg Tab, 1 TAB PO BID 05/24/23 Pantoprazole Sodium Sesquihydr (Pantoprazole Sodium) 40 Mg Tab, 1 TAB PO DAILY 05/24/23 Information Source: Patient Mode of Arrival: Ambulatory Severity: Moderate Timing: Days Duration: Since onset Prehospital treatment: None Past Medical History PAST MEDICAL HISTORY: Anemia, Anxiety, CVA, DM, High Lipids, Kidney Stones, TIA Surgical History: COMMUNITY OUTREACH DIRECTOR History: Denies all COMMUNITY OUTREACH DIRECTOR Hx Family History Family History: Family hx of DM, Family hx of HTN Social History Smoker: Non-Smoker Alcohol: Denies ETOH Use Drugs: Denies Drug Use Lives In: Home Constitutional: denies: chills, diaphoresis, fatigue, fever, malaise, sweats, weakness, others EENTM: denies: blurred vision, double vision, ear bleeding, ear discharge, ear drainage, ear pain, ear ringing, eye pain, eye redness, hearing loss, mouth pain, mouth swelling, nasal discharge, nose bleeding, nose congestion, nose pain, photophobia, tearing, throat pain, throat swelling, voice changes, others Respiratory: denies: cough, hemoptysis, orthopnea, SOB at rest, shortness of breath, SOB with excertion, stridor, wheezing, others Cardiovascular: denies: chest pain, dizzy spells, diaphoresis, Dyspnea on exertion, edema, irregular heart beat, left arm pain, lightheadedness, pal pitations, PND, syncope, others Gastrointestinal: reports: nausea; denies: abdomen distended, abdominal pain, blood streaked bowels, constipated, diarrhea, dysphagia, difficulty swallowing, hematemesis, melena, poor appetite, poor fluid intake, rectal bleeding, rectal pain, vomiting, others Genitourinary: denies: abnormal vagina bleeding, burning, dyspareunia, dysuria, flank pain, frequency, hematuria, incontinence, pain, , vagina disc harge, urgency, others Neurological: denies: dizziness, fainting, headache, left sided numbness, left sided weakness, numbness, paresthesia, pre-existing deficit, right sided numbness, right sided weakness, seizure, speech problems, tingling, tremors, weakness, others Musculoskeletal: reports: back pain; denies: gout, joint pain, joint swelling, muscle pain, muscle stiffness, neck pain, others Integumetry: denies: bruises, change in color, change in hair/nails, dryness, laceration, lesions, lumps, rash, wounds, others Allergic/Immunocompromised: denies: Difficulty Healing, Frequent Infections, Hives, Itching, others Hematologic/Lymphatic: denies: anemia, blood clots, easy bleeding, easy bruising, swollen glands, others Endocrine: denies: excessive hunger, excessive sweating, excessive thirst, excessive urination, flushing, intolerance to cold, intolerance to heat, unexplained weight gain, unexplained weight loss, others Psychiatric: denies: anxiety, bipolar disorder, depression, hopeless, panic disorder, schizophrenia, sleepless, suicidal, others Physical Exam General Appearance: No Apparent Distress, Normal HEENT: Normal ENT Inspection, Pharynx Normal, TMs Normal Neck: Full Range of Motion, Non-Tender, Normal, Normal Inspection Respiratory: Chest Non-Tender, Lungs Clear, No Accessory Muscle Use, No Respiratory Distress, Normal Breath Sounds Cardiovascular: No Edema, No JVD, No Murmur, No Gallop, Normal Peripheral Pulses, Regular Rate/Rhythm Breast Exam: Deferred Gastrointestinal: No Organomegaly, Non Tender, No Pulsatile Mass, Normal Bowel Sounds, Soft Genitalia: Deferred Pelvic: Deferred Rectal: Deferred Extremities: No calf tenderness, Normal capillary refill, Normal inspection, Normal range of motion, Non-tender, No pedal edema Musculoskeletal : Apperance: Normal Neurologic: Alert, customer complaint service supervisor II-XII nml as Tested, No Motor Deficits, Normal Affect, Normal Mood, No Sensory Deficits Cerebellar Function: Normal Reflexes: Normal Skin: Dry, Normal Color, Warm Lymphatic: No Adenopathy Was a procedure done? Was a procedure done?: No Differential Dx Considerations may include: Musculoskeletal pain, UTI, kidney stones X-Ray, Labs, Meds, VS Vital Signs Date Time Temp Pulse Resp B/P (MAP) Pulse Ox O2 Delivery O2 Flow Rate FiO2 04/28/24 21:50 97.9 94 20 126/70 (88) 97 97.9 04/28/24 21:50 Room Air* 0 21 04/28/24 20:45 100.8 98 18 116/72 (87) 97 Lab Test 04/28/24 20:24 04/28/24 20:22 Range/Units Urine Color Colorless Yellow Urine Clarity Clear Clear Urine pH 5.5 5.0-9.0 Urine Specific [place] 1.020 1.001-1.035 Urine Protein Negative Negative Urine Ketones Negative Negative Urine Blood Negative Negative /uL Urine Nitrite Negative Negative Urine Bilirubin Negative Negative Urine Urobilinogen Normal Negative mg/dL Urine Leukocyte Esterase Negative Negative /uL Urine RBC 1 0 - 4 /hpf Urine WBC 2 0 - 5 /hpf Urine Squamous Epithelial Cells Few <5 /hpf Urine Bacteria Few H None Seen /hpf Urine Mucus Few None Seen Urine Glucose 4+ H Normal mg/dL POC Glucose 234 H 70-106 mg/dl Current Medications Medications (Trade) Dose Ordered Sig/Pieter Route Start Time Stop Time Status Last Admin Diazepam (Valium Tablet) 5 mg ONCE ONCE PO 04/28/24 20:45 04/28/24 20:46 DC 04/28/24 21:56 Acetaminophen/ Hydrocodone Bitart (Dante 5/325MG Tab) 1 tab ONCE ONCE PO 04/28/24 20:45 04/28/24 20:46 DC 04/28/24 21:56 Time of 1ST Reevaluation: 20:43 Reevaluation 1ST: Unchanged Time of 2ND Reevaluation: 21:30 Reevaluation 2ND: Improved Patient Education/Counseling: Diagnosis, Treatment Family Education/Counseling: No Family Present Departure 1 Departure Time of Disposition: 22:05 Impression: Primary Impression: Low back pain Disposition: 01 HOME / SELF CARE / HOMELESS Condition: Stable e-Prescriptions Cyclobenzaprine Hcl (CYCLOBENZAPRINE HCL) 7.5 Mg Tab 7.5 MG PO BID PRN for 10 Days, #20 TAB Prov: LUCY FRAZIER MD 04/28/24 Gabapentin (Gabapentin) 300 Mg Cap 1 CAP PO TID PRN for 10 Days, #90 CAP 5 Refills Prov: LUCY FRAZIER MD 04/28/24 Discharged With: Self Critical Care Note Critical Care Time?: No Stability Stability form required: No Heart Score Heart Score: Heart Score Response (Comments) Value History N/A 0 EKG N/A 0 Age N/A 0 Risk Factors N/A 0 Troponin N/A 0 Total 0 I personally scribed for LUCY FRAZIER MD ([email or web address]) on 04/28/24 at 20:45. Electronically submitted by Jorden Horne ([email or web address]). LUCY FRAZIER MD Apr 28, 2024 20:45
[2024-04-28 20:57] LABS: Urine Bacteria FEW /hpf (None Seen); Urine Blood Negative /uL (Negative); Urine Clarity Clear (Clear); Urine Color Colorless (Yellow); Urine Mucus FEW (None Seen); Urine Protein, UAD Negative (Negative); Urine Urobilinogen Normal (Negative); Urine WBC 2 /hpf (0 - 5); Urine pH 5.5 (5.0-9.0)
[2024-04-28 21:50] VITALS: BP 126/70; PULSE 94; RESP 20; TEMP 97.9; O2SAT 97
[2024-04-28] MEDS: HYDROcodone-ACET 5/325MG TAB PO ONE (21:56)
[2024-04-28] MEDS: diazePAM 5 MG TAB PO ONE (21:56)
--- NOTE | 2024-04-28 22:35 | DVH ---
INDICATION: low back pain TECHNIQUE: 4 views of the lumbar spine were obtained. COMPARISON: None FINDINGS: There are no fractures or subluxations. Paravertebral soft tissues are unremarkable. Vertebral body heights and disc spaces are maintained IMPRESSION: 1. Of the visualized spine, there is no evidence for fracture or subluxation.
[2024-04-28] MEDS ORDERED: GABA-1250 PO (22:54)
[2024-04-28] MEDS ORDERED: CYCL-838 PO (22:56)
== END 2024-04-28 23:07 | disposition home or self-care (01) ==
LOC: ER 20:03
DX: M54.50 Low back pain, unspecified (principal); E11.9 Type 2 diabetes mellitus without complications; E78.5 Hyperlipidemia, unspecified; I10 Essential (primary) hypertension; F41.9 Anxiety disorder, unspecified; Z86.73 Personal history of transient ischemic attack (TIA), and cerebral infarction without residual deficits; Z98.890 Other specified postprocedural states; Z79.82 Long term (current) use of aspirin; Z79.84 Long term (current) use of oral hypoglycemic drugs; Z79.85 Long-term (current) use of injectable non-insulin antidiabetic drugs; Z79.899 Other long term (current) drug therapy
CPT/HCPCS: 72100; 81001; 82962

== ENCOUNTER → 2024-08-20 | Day surgery (SDC) | payer MEDICAID ==
[2024-08-16 13:42] LABS: Basophils # (auto) 0 10 ^3/uL (0-0.2); Basophils % (auto) 0.6 % (0.0-2.0); Eosinophils # (auto) 0.1 10 ^3/uL (0-0.8); Eosinophils % (auto) 1.5 % (0.0-7.0); Hematocrit 45.3 % (36.0-46.0); Hemoglobin 14.9 g/dL (12.2-16.2); Lymphocytes # (auto) 3.5 10 ^3/uL (0.4-5.4); Lymphocytes % (auto) 42.1 % (10.0-50.0); Mean Corpuscular Hemoglobin 29.3 pg (28.0-32.0); Mean Corpuscular Hgb Conc. 32.8 g/dL (32.0-36.0); Mean Corpuscular Volume 89.3 fL (80.0-100.0); Monocytes # (auto) 0.5 10 ^3/uL (0-1.3); Monocytes % (auto) 6.6 % (0.0-12.0); Neutrophils # (auto) 4.1 10 ^3/uL (1.6-8.6); Neutrophils % (auto) 49.2 % (37.0-80.0); Platelet Count (auto) 269 10^3/uL (140-450); Red Blood Cells 5.08 10^6/uL (4.0-5.20); Red Cell Distribution Width 13.7 % (11.8-14.3); White Blood Cell 8.3 10^3/uL (4.4-10.8)
[2024-08-16 14:04] LABS: Urine Bacteria FEW /hpf (None Seen); Urine Blood Negative /uL (Negative); Urine Clarity Clear (Clear); Urine Color Light-Yellow (Yellow); Urine Protein, UAD TRACE (Negative); Urine Specific Gravity 1.035 (1.001-1.035); Urine Squamous Epithelial Cell FEW /hpf (<5); Urine Urobilinogen Normal (Negative); Urine WBC 3 /HPF (0-5); Urine pH 5.5 (5.0-9.0)
[2024-08-16 14:06] LABS: Alanine Aminotransferase 19 U/L (7-40); Alkaline Phosphatase 53 U/L (46-116); Anion Gap 8 (5-15); Aspartate Aminotransferase 17 U/L (13-40); BUN/Creatinine Ratio 10.8 (10.0-20.0); Bilirubin, Total 0.8 mg/dL (0.2-1.0); Calcium 10.2 mg/dL (8.7-10.4); Carbon Dioxide 27 mmol/L (20-31); Chloride 105 mmol/L (98-107); Potassium 4.1 mmol/L (3.5-5.1); Sodium 140 mmol/L (136-145); Total Protein 7.7 g/dL (5.7-8.2)
[2024-08-16 14:11] LABS: Albumin 4.8 g/dL (3.2-4.8); Blood Urea Nitrogen 8 mg/dL (9-23); Glucose 140 mg/dL (74-106)
[2024-08-16 15:00] LABS: INR 0.98 (0.9-1.15); Prothrombin Time 10.4 sec (9.3-11.8)
[~2024-08-20] VITALS: Ht 152.4 cm; Wt 68.9 kg
[~2024-08-20] MED LIST changes: -ASPI-543 PO; +BUPIVACAINE 0.5% P/F INJ 10 ML VIAL ONE; -DULA1INJ SC; +DexAMETHasone SOD PHOS 10MG/1ML VIAL INJ ONE; -GAB100C PO; +LIDOCAINE 2% (LOCAL ANESTH.) PF 5ml SDV ONE; +METOCLOPRAMIDE HCL 5MG/ml INJ 2ml VIAL ONE; +MIDAZOLAM HCL 2MG/2ML 2ml VIAL (1mg/ml) ONE; +ONDANSETRON HCL 4 MG/2 ML VIAL ONE; +PROPOFOL 10 MG/ML 20 ML IV ONE; +ceFAZolin 2 GM/D5W100ml 100 ML IV ONE; +ePHEDrine SULFATE 50 MG/ML AMP ONE; +fentaNYL CITRATE 100 MCG/2 ML VL ONE
[2024-08-20] MEDS: BUPIVACAINE 0.5% P/F INJ 10 ML VIAL ONE (12:07)
[2024-08-20 12:16] VITALS: PULSE 82; RESP 21; O2SAT 92
--- NOTE | 2024-08-20 12:31 | DVHOP2 ---
Operative Report - 2 Report Details Date: 08/20/24 Preop Diagnosis: 1. Right ankle synovitis 2. Right ankle osteochondral defect 3. Right ankle pain Postop Diagnosis: Ankle osteochondral defect Surgeon: Lucia Lopez MD Anesthesiologist: See anesthesia Anesthesia: General Consent: The patient was informed of the risks and benefits of the procedure. These include but are not limited to complications of anesthesia, postoperative infection, incomplete relief of symptoms, recurrence of symptoms, damage to blood vessels, nerves and tendons, deep venous thrombosis, pulmonary embolism and possible need for repeat surgery in the future. Complications: None Estimated Blood Loss: Minimal Fluids: See anesthesia Findings: Consistent with the diagnosis Indications for Surgery: Worsening right ankle pain Name of Procedure Performed 1. Right ankle scope with extensive debridement (68663) 2. Right ankle microfracture of talus (73282) Procedure Details Procedure Details: PRE-PROCEDURE INFORMATION: In the pre-op holding area, the extremity to be operated on was clearly marked and the patient verified correct laterality of the marking. The patient was transferred to the OR table and placed in a supine position. A timeout was performed in which identification of the correct patient, procedure, location, and materials was done. The right foot and leg were prepped and draped in normal sterile fashion. The foot and leg were exsanguinated and the thigh tourniquet was inflated to 250 mmHg. DESCRIPTION OF PROCEDURE: Attention was directed to the right anterior ankle where stab incisions were made at the medial and lateral ankle gutters. These incisions were deepened through blunt dissection to the level of the capsule, and utilizing the ankle arthroscopy set, the arthroscopy camera and the debrider were placed into the ankle joint and an extensive exam of the ankle joint was performed of the medial and lateral ankle gutters, the posterior talus and tibia as well as the anterior talus and tibia. These areas were visually inspected using the camera. It was noted that there was significant ankle synovitis, including hemorrhagic synovitis throughout the ankle specifically the medial and lateral gutters. There appeared to be a 10 x 10 mm osteochondral defect on the right medial shoulder. Utilizing arthroscopy debrider and utilizing the total arthroscopy set, there was extensive debridement of the aforementioned ankle synovitis. The utilizing the microfractures mutation, microfracture of the talar osteochondral defect was performed via standard technique. It was noted prior to performing the arthroscopy that the patient's ankle was maximally dorsiflexed and plantar flexed passively that there was significant audible and palpable clicking within the joint. After this extensive debridement was performed, there was no longer any palpable or audible clicking of this joint. After the ankle scope was performed, the incisions were closed with nylon s uture. All surgical wounds were irrigated copiously with saline and closed in layers with the aforementioned suture material. A dry sterile dressing was placed on the surgical extremity. The patient was placed in a cam boot POSTOPERATIVE INFORMATION: The patient tolerated the above noted procedure and anesthesia well and was transferred to the PACU with vital signs stable, and va scular status intact with capillary refill intact to all digits. Postoperative instructions reviewed in detail with the patient with written instructions provided. Patient will return to clinic in approximately 10-14 days for first postoperative visit. Patient has the number of the clinic and was instructed to call prior to that time should any problems, questions, or concerns arise. Condition Good Disposition Home LUCIA LOPEZ DPM Aug 20, 2024 12:31
[2024-08-20 13:01] VITALS: BP 126/67; PULSE 82; RESP 21; O2SAT 92
== END | disposition home or self-care (01) ==
LOC: SUR 08:56
PROVIDERS: ATTEND Podiatrist
DX: M65.871 Other synovitis and tenosynovitis, right ankle and foot (principal); M95.8 Other specified acquired deformities of musculoskeletal system; M21.6X1 Other acquired deformities of right foot; G60.9 Hereditary and idiopathic neuropathy, unspecified; M72.2 Plantar fascial fibromatosis; E11.9 Type 2 diabetes mellitus without complications; E78.5 Hyperlipidemia, unspecified; Z79.84 Long term (current) use of oral hypoglycemic drugs; Z98.890 Other specified postprocedural states; Z98.891 History of uterine scar from previous surgery
CPT/HCPCS: 29891; 29898; 36415; 80053; 81001; 82962; 85025; 85610; 85730; J1100; J2003; J2250; J2405; J2704; J2765; J3010; J3490